=== PATIENT | female | born 1970 ===

== ENCOUNTER 2022-03-23 19:35 | Emergency (ER) | payer SELFPAY ==
[~2022-03-23] VITALS: Ht 165.1 cm; Wt 104.5 kg
[2022-03-23 20:26] VITALS: BP 145/87
== END 2022-03-23 23:48 | disposition left against medical advice (07) ==
LOC: EMS 19:43
DX: Z53.21 Procedure and treatment not carried out due to patient leaving prior to being seen by health care provider (principal)